=== PATIENT | female | born 2005 | race Caucasian/White ===

== ENCOUNTER → 2024-01-14 11:12 | Outpatient (REF) | payer OTHER, SELFPAY ==
[2024-01-16 00:36] LABS: ANA, IgG Reflex to HEp-2 None Detected (None Detected)
[2024-01-16 14:31] LABS: Rheumatoid Agglutinin Less Than 10 IU (<10 IU)
== END ==
LOC: REG 11:12
PROVIDERS: ATTENDING PHYSICIAN Nurse Practitioner Family
DX: M79.672 Pain in left foot (principal); M25.50 Pain in unspecified joint
CPT/HCPCS: 36415; 73630; 86038; 86140; 86430